=== PATIENT | male | born 2000 | race Two or more races ===

== ENCOUNTER 2022-07-31 14:31 | Emergency (ER) | payer BC ==
[~2022-07-31] VITALS: Ht 170.2 cm; Wt 59.0 kg
--- NOTE | 2022-07-31 14:44 | NUR ---
BIBS C/O DIARRHEA SINCE 6AM. +NAUSEA, NO VOMITTING. HX OF IBS.
[2022-07-31] MEDS ORDERED: ONDANSETRON HCL/PF 4 MG/2 ML VIAL ONE (15:19)
[2022-07-31] MEDS ORDERED: FAMOTIDINE/PF INJ 20 MG/2 ML VIAL IV ONE ×2 (15:20→15:30)
--- NOTE | 2022-07-31 15:26 | NUR ---
PHLEB AT BEDSIDE FOR BLOOD DRAW/COLLECTION
[2022-07-31] MEDS ORDERED: IV NS 0.9% 1,000 ML BAG IV ONE (15:30)
[2022-07-31] MEDS ORDERED: ONDANSETRON HCL/PF 4 MG/2 ML VIAL IVP ONE (15:30)
[2022-07-31 15:41] LABS: BASOPHILS % (AUTO) 0.1 % (0.0-2.0); EOSINOPHILS % (AUTO) 0.4 % (0.0-6.0); HEMATOCRIT 50 % (39-51); HEMOGLOBIN 16.5 g/dL (13.5-17.5); LYMPHOCYTES # (AUTO) 0.4 K/uL (0.8-4.8); LYMPHOCYTES % (AUTO) 4.7 % (20.0-44.0); MEAN CORPUSCULAR HGB CONC 33 g/dl (31.0-36.0); MEAN CORPUSCULAR VOLUME 89 fL (80-96); MONOCYTES # (AUTO) 0.5 K/uL (0.1-1.30); NEUTROPHILS # (AUTO) 8.1 K/uL (1.8-8.9); NEUTROPHILS % (AUTO) 89.8 % (43.0-81.0); PLATELET COUNT (AUTO) 173 K/uL (150-450); RED BLOOD CELL COUNT(AUTO) 5.58 MIL/uL (4.5-6.0)
[2022-07-31 15:56] LABS: ALBUMIN 5.1 g/dL (3.4-5.0); BILIRUBIN,DIRECT 0.2 mg/dL (0.0-0.2); BILIRUBIN,TOTAL 0.6 mg/dL (0.2-1.0); CALCIUM, SERUM 9.6 mg/dL (8.5-10.1); CREATININE 0.7 mg/dL (0.6-1.3); POTASSIUM 3.9 mmol/L (3.5-5.1); TOTAL PROTEIN, SERUM 8.6 g/dL (6.4-8.2)
[2022-07-31] MEDS ORDERED: ONDA4TAB5 PO (16:32)
--- NOTE | 2022-07-31 16:38 | NUR ---
IV removed. Catheter intact and site benign. Pressure and 4x4 applied to site. No bleeding noted.
[2022-07-31 16:43] VITALS: BP 124/71
--- NOTE | 2022-07-31 16:47 | NUR ---
Patient discharged to home in stable condition. Written and verbal after care instructions given. Patient verbalizes understanding of instruction.
== END 2022-07-31 16:47 | disposition home or self-care (01) ==
LOC: ER 14:40
DX: R19.7 Diarrhea, unspecified (principal); R11.0 Nausea
CPT/HCPCS: 99284; 96374; 96361; 96375; 85025; 80048; 83690; 80076; 36415; J3490; J2405; J7030

== ENCOUNTER 2023-04-06 12:19 | Emergency (ER) | payer BC ==
[~2023-04-06] VITALS: Ht 170.2 cm; Wt 59.0 kg
[~2023-04-06 12:19] MED LIST: ONDA4TAB5 PO
[2023-04-06] MEDS ORDERED: CYCL10TA9 PO (13:54)
[2023-04-06] MEDS ORDERED: NAPR-1009 PO (13:54)
[2023-04-06] MEDS ORDERED: NAPROXEN 250 MG TABLET PO ONE (14:00)
[2023-04-06 14:05] VITALS: BP 113/77; TEMP 98.3; O2SAT 99
== END 2023-04-06 14:05 | disposition home or self-care (01) ==
LOC: ER 12:25
DX: M54.41 Lumbago with sciatica, right side (principal)